=== PATIENT | female | born 1985 | race Two or more races ===

== ENCOUNTER 2017-08-28 20:46 | Emergency (ER) | payer MEDICAID, OTHER ==
[~2017-08-28] VITALS: Ht 165.1 cm; Wt 113.4 kg
[2017-08-28 21:38] LABS: Eosinophils # (auto) 0.1 uL; Hemoglobin 12.3 g/dL (12.2-16.2); Neutrophils % (auto) 61.2 % (37.0-80.0)
[2017-08-28 21:39] LABS: Basophils # (auto) 0.2 uL; Basophils % (auto) 1.1 % (0.0-2.0); Eosinophils % (auto) 0.7 % (0.0-7.0); Hematocrit 37.7 % (36.0-46.0); Lymphocytes # (auto) 4.9 uL; Lymphocytes % (auto) 33.5 % (10.0-50.0); Mean Corpuscular Hemoglobin 26.6 pg (28.0-32.0); Mean Corpuscular Hgb Conc. 32.6 g/dL (32.0-36.0); Mean Corpuscular Volume 81.6 fL (80.0-100.0); Monocytes # (auto) 0.5 uL; Monocytes % (auto) 3.5 % (0.0-12.0); Platelet Count (auto) 305 10^3/uL (140-450); Red Blood Cells 4.62 10^6/uL (4.0-5.20); Red Cell Distribution Width 14.8 % (11.8-14.3); White Blood Cell 14.7 10^3/uL (4.4-10.8)
[2017-08-28 21:55] LABS: Alanine Aminotransferase 31 U/L (13-56); Albumin 3.1 g/dL (3.4-5.0); Anion Gap 10 (5-15); Aspartate Aminotransferase 29 U/L (15-37); BUN/Creatinine Ratio 17.8; Blood Urea Nitrogen 13 mg/dL (7-18); Calcium 9.1 mg/dL (8.5-10.1); Carbon Dioxide 23 mmol/L (21-32); Chloride 102 mmol/L (98-107); GFR African American 119 mL/min; GFR Non-African American 98 mL/min; Glucose 278 mg/dL (74-106); Magnesium 1.7 mg/dL (1.6-2.6); Sodium 135 mmol/L (136-145)
[2017-08-28 22:01] LABS: Alkaline Phosphatase 132 U/L (45-117); Bilirubin, Total 0.5 mg/dL (0.2-1.0)
[2017-08-29] MEDS ORDERED: InsuLIN REG 1unit/0.01ml Soln (100units/ml) IV ONE (00:45)
[2017-08-29] MEDS ORDERED: SODIUM CHLORIDE 0.9% 1,000 ML IV ONE (00:45)
[2017-08-29 02:30] VITALS: BP 124/69
== END 2017-08-29 02:45 | disposition home or self-care (01) ==
LOC: EDBD 20:46 → ER 20:51
DX: R07.89 Other chest pain (principal); E11.65 Type 2 diabetes mellitus with hyperglycemia; I10 Essential (primary) hypertension; D72.829 Elevated white blood cell count, unspecified; Z79.4 Long term (current) use of insulin
CPT/HCPCS: 36415; 71045; 80053; 82010; 82962; 83735; 84484; 85025; 93005; 96361; 96374; 99285; J1815; J7030

== ENCOUNTER 2017-10-10 13:45 | Emergency (ER) | payer MEDICAID ==
[~2017-10-10] VITALS: Ht 165.1 cm; Wt 138.3 kg
[2017-10-10 14:36] LABS: Urine Bacteria FEW /hpf (None Seen); Urine Blood 3+ /uL (Negative); Urine Mucus FEW (None Seen); Urine Specific Gravity 1.028 (1.001-1.035); Urine WBC 13 /hpf (0 - 5)
[2017-10-10 16:53] VITALS: BP 148/86
== END 2017-10-10 17:50 | disposition home or self-care (01) ==
LOC: ER 13:45
DX: O20.0 Threatened abortion (principal); O24.311 Unspecified pre-existing diabetes mellitus in pregnancy, first trimester; O10.911 Unspecified pre-existing hypertension complicating pregnancy, first trimester; O26.891 Other specified pregnancy related conditions, first trimester; Z3A.01 Less than 8 weeks gestation of pregnancy; Z91.040 Latex allergy status
CPT/HCPCS: 36415; 76801; 76817; 81001; 84702